=== PATIENT | male | born 1965 | race Caucasian/White ===

== ENCOUNTER 2017-05-10 14:51 | Inpatient (IN) | payer OTHER ==
[~2017-05-10] VITALS: Ht 175.3 cm; Wt 69.2 kg
[~2017-05-10 14:51] MED LIST: ACETAMINOPHEN325 M1 PO; ANTI-DIARRHEAL2 M1 PO; BENTYL20 MG PO; CLONAZEPAM1 MG PO; DICYCLOMINE HCL20 MG PO; FAMOTIDINE20 MG PO; FLEXERIL10 MG PO; FLOMAX0.4 MG PO; FLUCONAZOLE200 M1 PO; GRALISE300 MG PO; HYDROCODONE-AP1 EAC1 PO; IRON18 MG PO; IRON325 M1 PO; KLONOPIN1 MG PO; LOMOTIL TABLET1 EACH PO; METAMUCIL CAPSU1 CAP PO; METRONIDAZOLE500 MG PO; NEURONTIN300 MG PO; OPIUM10 MG/1 ML PO; OXYCODONE HCL5 MG PO; OXYCODONE20 MG PO; PERCOCET 5/31 TABLET PO; PERCOCET 7.51 TABLET PO; PRILOSEC20 MG PO; PROAIR HFA8.5 GM IH; SYMBICORT60 INHALAT IH
[2017-05-10 15:36] LABS: HEMATOCRIT 44.5 % (38.0-50.0); MCH 30.7 PG (29.0-34.0); MCHC 33.9 G/DL (30.0-36.0); MCV 90.4 FL (86-99); MEAN PLAT.VOLUME 10.8 uM^3 (9.0-12.4); PLATELET COUNT 123 K/uL (156-360); RBC DIS.WIDTH-CV 14.2 % (11.8-14.6); RBC DIS.WIDTH-SD 47.8 % (39-53); RED BLOOD COUNT 4.92 M/uL (4.00-5.50)
[2017-05-10 15:37] LABS: CHLORIDE 95 mEq/L (99-109); POTASSIUM 5.4 mEq/L (3.7-5.4); SODIUM 135 mEq/L (136-147); WHITE BLOOD COUNT 1.6 K/uL (4.1-10.2)
[2017-05-10 15:39] LABS: GLUCOSE 77 mg/dL (70-99)
[2017-05-10 15:40] LABS: ANION GAP 24 MEQ/L (2-14)
[2017-05-10 15:41] LABS: TOTAL BILIRUBIN 0.5 mg/dL (0.0-1.0)
[2017-05-10 15:43] LABS: ALKALINE PHOSPHATASE 39 IU/L (3-129); GFR ESTIMATE (CALCULATED) 15 mL/min/
[2017-05-10 15:44] LABS: UREA NITROGEN (BUN) 87 mg/dL (9-23)
[2017-05-10 15:48] LABS: TROP-I INTERPRETATION NEGATIVE; TROPONIN-I < 0.01 ng/mL (0.0-0.30)
[2017-05-10 16:45] LABS: ABS NEUTROPHIL COUNT 1.3; ANISOCYTOSIS 1+; BAND NEUTROPHILS 47.2 % (0-8.0); BASOPHILS 0.9 %; BURR CELLS 2+; EOSINOPHIL ABS CT 0; GIANT PLATELETS 1+; INSTRUMENT ABS NEUTROPHIL CT 1.4 K/uL; LYMPHOCYTES 7.4 % (15.0-45.0); MACROCYTES 1+; MYELOCYTES 6.5 %; PLAT.SUFFICIENCY DECREASED; POIKILOCYTOSIS 2+; POLYCHROMASIA 1+; SEG.NEUTROPHILS 35.2 % (46.0-76.0); SPHEROCYTES 2+
[2017-05-10 17:56] LABS: TOX.VACUOLIZATION 2+; TOXIC GRANULATION 3+
[2017-05-10] MEDS ORDERED: GABAPENTIN300 MG PO (18:51)
[2017-05-10] MEDS ORDERED: TAMSULOSIN HCL0.4 MG PO (18:53)
[2017-05-10] MEDS ORDERED: TIZANIDINE HCL4 MG PO (18:55)
[2017-05-10] MEDS ORDERED: AFRIN,GENASAL D15 ML BOTH NARES (18:57)
[2017-05-10] MEDS ORDERED: PREDNISONE50 MG PO (18:57)
[2017-05-10 19:20] VITALS: BP 122/70
[2017-05-10 20:00] VITALS: BP 110/71
[2017-05-10 21:00] VITALS: BP 142/80
[2017-05-10 21:30] LABS: METH RESISTANT S AUREUS PCR NEGATIVE (NEGATIVE)
[2017-05-10 21:53] LABS: PROBE CHECK PASS; SPECIMEN PROCESSING CONTROL PASS
[2017-05-10 22:00] VITALS: BP 109/68
[2017-05-10 23:00] VITALS: BP 103/71
[2017-05-11] VITALS (22 sets, daily range): BP systolic 83–146; BP diastolic 56–104
[2017-05-11 06:24] LABS: HEMATOCRIT 36.2 % (38.0-50.0); MCH 30.2 PG (29.0-34.0); MCHC 33.1 G/DL (30.0-36.0); RBC DIS.WIDTH-CV 14.3 % (11.8-14.6); RBC DIS.WIDTH-SD 48.3 % (39-53); RED BLOOD COUNT 3.98 M/uL (4.00-5.50)
[2017-05-11 06:28] LABS: ANION GAP 12 MEQ/L (2-14); CHLORIDE 105 MEQ/L (99-109); GLUCOSE 77 mg/dL (70-99); POTASSIUM 4.8 MEQ/L (3.7-5.4); SAMPLE HEMOLYSIS CHECK 0; SAMPLE ICTERIC CHECK 0; SAMPLE LIPEMIA CHECK 0; SODIUM 139 MEQ/L (136-147); UREA NITROGEN (BUN) 62 mg/dL (9-23)
[2017-05-11 06:31] LABS: TROP-I INTERPRETATION NEGATIVE; TROPONIN-I 0.02 ng/mL (0.0-0.30)
[2017-05-11 06:35] LABS: GFR ESTIMATE (CALCULATED) 33 mL/min/
[2017-05-11 06:49] LABS: MEAN PLAT.VOLUME 11.4 uM^3 (9.0-12.4); PLAT.SUFFICIENCY DECREASED
[2017-05-11 06:59] LABS: PLATELET COUNT 80 K/uL (156-360)
[2017-05-11 10:14] LABS: MAGNESIUM 1.8 mg/dl (1.3-2.7)
[2017-05-11 16:48] LABS: BASE EXCESS -4.1 mEq/L (-3 to +3); CARBOXY HGB 2.1 % (0-5); METHEMOGLOBIN 1.5 % (0-1.5); PCO2 49 mm Hg (35-45); PO2 60 mm Hg (80-100)
[2017-05-11 16:49] LABS: COMMENTS - BLOOD GASES C+; DEVICE NC; O2 FLOW 5 L/MIN; SITE RR; TOTAL RESP RATE 32 resp/min; pH 7.28 (7.35-7.45)
[2017-05-11 20:07] LABS: BICARBONATE 23.8 mEq/L (22-26); CARBOXY HGB 1.5 % (0-5); METHEMOGLOBIN 1.4 % (0-1.5)
[2017-05-11 20:08] LABS: COMMENTS - BLOOD GASES C+A+; DEVICE VENTILATOR; FI02 100 %; INSPIRATION TIME 0.8 seconds; MECHANICAL RATE 14 resp/min; MODE A/C VC+; PCO2 61 mm Hg (35-45); PEEP 8 CM/H20; PO2 324 mm Hg (80-100); SITE RR; TIDAL VOLUME 450 ML; TOTAL RESP RATE 19 resp/min
[2017-05-12] VITALS (23 sets, daily range): BP systolic 84–124; BP diastolic 51–71
[2017-05-12 06:45] LABS: HEMATOCRIT 34.9 % (38.0-50.0); MCH 31.5 PG (29.0-34.0); MCHC 33.2 G/DL (30.0-36.0); MCV 94.8 FL (86-99); MEAN PLAT.VOLUME 11.5 uM^3 (9.0-12.4); PLATELET COUNT 89 K/uL (156-360); RBC DIS.WIDTH-SD 52.7 % (39-53); RED BLOOD COUNT 3.68 M/uL (4.00-5.50); WHITE BLOOD COUNT 5.2 K/uL (4.1-10.2)
[2017-05-12 07:10] LABS: ANION GAP 8 MEQ/L (2-14); CHLORIDE 109 MEQ/L (99-109); GLUCOSE 90 mg/dL (70-99); SAMPLE HEMOLYSIS CHECK 0; SAMPLE ICTERIC CHECK 0; SAMPLE LIPEMIA CHECK 0; SODIUM 140 MEQ/L (136-147); UREA NITROGEN (BUN) 54 mg/dL (9-23)
[2017-05-12 07:11] LABS: GFR ESTIMATE (CALCULATED) > 59 mL/min/; MAGNESIUM 2.4 mg/dl (1.3-2.7)
[2017-05-12 13:30] LABS: BASE EXCESS -3.6 mEq/L (-3 to +3); BICARBONATE 23.1 mEq/L (22-26); CARBOXY HGB 1.5 % (0-5); COMMENTS - BLOOD GASES A+C+; DEVICE 840; FI02 40 %; MECHANICAL RATE 18 resp/min; METHEMOGLOBIN 1.3 % (0-1.5); MODE AC/VC+; PCO2 48 mm Hg (35-45); PO2 81 mm Hg (80-100); SITE LR; TOTAL RESP RATE 18 resp/min
[2017-05-12 13:31] LABS: INSPIRATION TIME 1.05 seconds; PEEP 8 CM/H20; TIDAL VOLUME 550 ML; pH 7.29 (7.35-7.45)
[2017-05-12 20:32] LABS: BASE EXCESS -4.3 mEq/L (-3 to +3); BICARBONATE 22.9 mEq/L (22-26); CARBOXY HGB 1.2 % (0-5); METHEMOGLOBIN 1.8 % (0-1.5); PCO2 51 mm Hg (35-45); PO2 72 mm Hg (80-100)
[2017-05-12 20:33] LABS: COMMENTS - BLOOD GASES C+A+; DEVICE VENT; FI02 40 %; MECHANICAL RATE 18 resp/min; MODE AC; PEEP 8 CM/H20; SITE LR; TIDAL VOLUME 550 ML; TOTAL RESP RATE 18 resp/min; pH 7.26 (7.35-7.45)
[2017-05-13] VITALS (24 sets, daily range): BP systolic 90–123; BP diastolic 54–82
[2017-05-13 02:05] LABS: BASE EXCESS -4.8 mEq/L (-3 to +3); CARBOXY HGB 1.3 % (0-5); COMMENTS - BLOOD GASES C+A+; DEVICE VENT; FI02 40 %; MECHANICAL RATE 22 resp/min; METHEMOGLOBIN 1.4 % (0-1.5); MODE AC; PCO2 48 mm Hg (35-45); PO2 83 mm Hg (80-100); SITE LR; TOTAL RESP RATE 22 resp/min
[2017-05-13 02:06] LABS: TIDAL VOLUME 550 ML; pH 7.27 (7.35-7.45)
[2017-05-13 02:11] LABS: PEEP 8 CM/H20
[2017-05-13 05:08] LABS: BASE EXCESS -4.7 mEq/L (-3 to +3); BICARBONATE 21.6 mEq/L (22-26); CARBOXY HGB 1.6 % (0-5); COMMENTS - BLOOD GASES C+A+; DEVICE VENT; FI02 40 %; MECHANICAL RATE 26 resp/min; METHEMOGLOBIN 1.5 % (0-1.5); MODE AC; PCO2 44 mm Hg (35-45); PEEP 8 CM/H20; PO2 59 mm Hg (80-100); SITE LR; TIDAL VOLUME 550 ML; TOTAL RESP RATE 26 resp/min
[2017-05-13 05:33] LABS: POTASSIUM 4.9 mEq/L (3.7-5.4); SODIUM 143 mEq/L (136-147)
[2017-05-13 05:34] LABS: CHLORIDE 117 mEq/L (99-109)
[2017-05-13 05:35] LABS: GLUCOSE 108 mg/dL (70-99)
[2017-05-13 05:36] LABS: HEMATOCRIT 30.3 % (38.0-50.0); MCH 30.1 PG (29.0-34.0); MCV 94.1 FL (86-99); MEAN PLAT.VOLUME 11.4 uM^3 (9.0-12.4); PLATELET COUNT 73 K/uL (156-360); RBC DIS.WIDTH-CV 15.2 % (11.8-14.6); RED BLOOD COUNT 3.22 M/uL (4.00-5.50); WHITE BLOOD COUNT 4.1 K/uL (4.1-10.2)
[2017-05-13 05:36] LABS: ANION GAP 5 MEQ/L (2-14)
[2017-05-13 05:39] LABS: GFR ESTIMATE (CALCULATED) > 59 mL/min/; UREA NITROGEN (BUN) 64 mg/dL (9-23)
[2017-05-13 07:07] LABS: EOSINOPHIL (%) 0 % (0-5); IMMATURE GRANULOCYTE (%) 1.5 % (0.0-0.7); IMMATURE GRANULOCYTE COUNT 0.1 K/uL; INSTRUMENT ABS NEUTROPHIL CT 3.5 K/uL; LYMPHOCYTE COUNT 0.2 K/uL (1.0-2.8); MONOCYTE (%) 7.8 % (3-12); MONOCYTE COUNT 0.3 K/uL (0-0.8); NEUTROPHIL (%) 86.5 % (45-76); NEUTROPHIL COUNT 3.5 K/uL (1.8-6.4)
[2017-05-13 23:58] LABS: BASE EXCESS -4.8 mEq/L (-3 to +3); BICARBONATE 21.1 mEq/L (22-26); CARBOXY HGB 1.8 % (0-5); METHEMOGLOBIN 1.5 % (0-1.5); PCO2 41 mm Hg (35-45); PO2 50 mm Hg (80-100); pH 7.32 (7.35-7.45)
[2017-05-14] VITALS (28 sets, daily range): BP systolic 94–148; BP diastolic 57–92
[2017-05-14] LABS: COMMENTS - BLOOD GASES C+A+; DEVICE VENT; FI02 30 %; MECHANICAL RATE 26 resp/min; MODE AC; PEEP 8 CM/H20; SITE LR; TIDAL VOLUME 550 ML; TOTAL RESP RATE 26 resp/min
[2017-05-14 04:16] LABS: HEMATOCRIT 30.4 % (38.0-50.0); MCH 30.3 PG (29.0-34.0); MCHC 31.6 G/DL (30.0-36.0); MCV 95.9 FL (86-99); PLATELET COUNT 74 K/uL (156-360); RBC DIS.WIDTH-CV 15.5 % (11.8-14.6); RBC DIS.WIDTH-SD 54.8 % (39-53); RED BLOOD COUNT 3.17 M/uL (4.00-5.50); WHITE BLOOD COUNT 6.1 K/uL (4.1-10.2)
[2017-05-14 04:26] LABS: CHLORIDE 119 mEq/L (99-109); POTASSIUM 5.2 mEq/L (3.7-5.4); SODIUM 149 mEq/L (136-147)
[2017-05-14 04:27] LABS: GLUCOSE 111 mg/dL (70-99)
[2017-05-14 04:29] LABS: ANION GAP 8 MEQ/L (2-14)
[2017-05-14 04:31] LABS: GFR ESTIMATE (CALCULATED) > 59 mL/min/
[2017-05-14 04:32] LABS: UREA NITROGEN (BUN) 62 mg/dL (9-23)
[2017-05-14 05:45] LABS: BASE EXCESS -3.9 mEq/L (-3 to +3); BICARBONATE 21.6 mEq/L (22-26); CARBOXY HGB 1.3 % (0-5); METHEMOGLOBIN 1.4 % (0-1.5); PCO2 40 mm Hg (35-45); pH 7.34 (7.35-7.45)
[2017-05-14 05:46] LABS: COMMENTS - BLOOD GASES C+A+; DEVICE VENT; FI02 40 %; MECHANICAL RATE 26 resp/min; MODE AC; PEEP 5 CM/H20; PO2 101 mm Hg (80-100); SITE RR; TIDAL VOLUME 550 ML; TOTAL RESP RATE 26 resp/min
[2017-05-14 07:15] LABS: MAGNESIUM 2.5 mg/dl (1.3-2.7)
[2017-05-14 13:28] LABS: ANION GAP 9 MEQ/L (2-14); CHLORIDE 119 MEQ/L (99-109); GFR ESTIMATE (CALCULATED) > 59 mL/min/; GLUCOSE 109 mg/dL (70-99); POTASSIUM 5.2 MEQ/L (3.7-5.4); SAMPLE HEMOLYSIS CHECK 0; SAMPLE ICTERIC CHECK 0; SAMPLE LIPEMIA CHECK 0; SODIUM 149 MEQ/L (136-147); UREA NITROGEN (BUN) 56 mg/dL (9-23)
[2017-05-15] VITALS (24 sets, daily range): BP systolic 98–151; BP diastolic 53–85
[2017-05-15 05:03] LABS: HEMATOCRIT 30.8 % (38.0-50.0); MCH 30.1 PG (29.0-34.0); MCHC 30.8 G/DL (30.0-36.0); MCV 97.5 FL (86-99); MEAN PLAT.VOLUME 10.9 uM^3 (9.0-12.4); NRBC (%) 0.3 /100 WBC (0-0); PLATELET COUNT 80 K/uL (156-360); RBC DIS.WIDTH-CV 15.5 % (11.8-14.6); RBC DIS.WIDTH-SD 55.8 % (39-53); RED BLOOD COUNT 3.16 M/uL (4.00-5.50); WHITE BLOOD COUNT 6.1 K/uL (4.1-10.2)
[2017-05-15 05:11] LABS: CHLORIDE 118 mEq/L (99-109); POTASSIUM 5.6 mEq/L (3.7-5.4); SODIUM 147 mEq/L (136-147)
[2017-05-15 05:13] LABS: GLUCOSE 128 mg/dL (70-99)
[2017-05-15 05:14] LABS: ANION GAP 8 MEQ/L (2-14)
[2017-05-15 05:17] LABS: GFR ESTIMATE (CALCULATED) > 59 mL/min/; UREA NITROGEN (BUN) 52 mg/dL (9-23)
[2017-05-16] VITALS (24 sets, daily range): BP systolic 99–133; BP diastolic 59–79
[2017-05-16 04:41] LABS: HEMATOCRIT 31.2 % (38.0-50.0); MCH 30.4 PG (29.0-34.0); MCHC 30.8 G/DL (30.0-36.0); MCV 98.7 FL (86-99); MEAN PLAT.VOLUME 11.3 uM^3 (9.0-12.4); PLATELET COUNT 96 K/uL (156-360); RBC DIS.WIDTH-CV 14.6 % (11.8-14.6); RED BLOOD COUNT 3.16 M/uL (4.00-5.50); WHITE BLOOD COUNT 7.1 K/uL (4.1-10.2)
[2017-05-16 04:58] LABS: CHLORIDE 113 mEq/L (99-109); SODIUM 147 mEq/L (136-147)
[2017-05-16 04:59] LABS: POTASSIUM 6.1 mEq/L (3.7-5.4)
[2017-05-16 05:00] LABS: GLUCOSE 129 mg/dL (70-99)
[2017-05-16 05:02] LABS: ANION GAP 10 MEQ/L (2-14); TOTAL BILIRUBIN 0.4 mg/dL (0.0-1.0)
[2017-05-16 05:04] LABS: ALKALINE PHOSPHATASE 41 IU/L (3-129); GFR ESTIMATE (CALCULATED) > 59 mL/min/
[2017-05-16 05:05] LABS: UREA NITROGEN (BUN) 48 mg/dL (9-23)
[2017-05-17] VITALS (24 sets, daily range): BP systolic 88–138; BP diastolic 51–88
[2017-05-17 04:49] LABS: HEMATOCRIT 33.6 % (38.0-50.0); MCH 30.4 PG (29.0-34.0); MCHC 31.5 G/DL (30.0-36.0); MCV 96.3 FL (86-99); MEAN PLAT.VOLUME 10.7 uM^3 (9.0-12.4); PLATELET COUNT 132 K/uL (156-360); RBC DIS.WIDTH-CV 13.9 % (11.8-14.6); RBC DIS.WIDTH-SD 49.3 % (39-53); RED BLOOD COUNT 3.49 M/uL (4.00-5.50)
[2017-05-17 04:58] LABS: CHLORIDE 104 mEq/L (99-109); POTASSIUM 5.3 mEq/L (3.7-5.4); SODIUM 144 mEq/L (136-147)
[2017-05-17 05:00] LABS: GLUCOSE 134 mg/dL (70-99)
[2017-05-17 05:02] LABS: ANION GAP 12 MEQ/L (2-14)
[2017-05-17 05:04] LABS: ALKALINE PHOSPHATASE 54 IU/L (3-129); GFR ESTIMATE (CALCULATED) > 59 mL/min/
[2017-05-17 05:05] LABS: UREA NITROGEN (BUN) 46 mg/dL (9-23)
[2017-05-17 05:08] LABS: TOTAL BILIRUBIN 0.5 mg/dL (0.0-1.0)
[2017-05-17 14:54] LABS: CREATINE KINASE 22 IU/L (1-294); TRIGLYCERIDES 107 MG/DL (Normal: <150)
[2017-05-17 15:45] LABS: ADD MIUA? NO; BILIRUBIN NEGATIVE; BLOOD NEGATIVE; COLOR YELLOW ((YELLOW)); GLUCOSE (STRIP) NEGATIVE; KETONES NEGATIVE; LEUKOCYTES NEGATIVE; NITRITE NEGATIVE; PROTEIN (STRIP) NEGATIVE; SPECIFIC GRAVITY 1.019 (1.000-1.030); UROBILINOGEN 0.2 MG/DL (0.2-1.0)
[2017-05-18] VITALS (24 sets, daily range): BP systolic 83–143; BP diastolic 47–90
[2017-05-18 06:12] LABS: HEMATOCRIT 35.7 % (38.0-50.0); MCH 29.9 PG (29.0-34.0); MCHC 31.4 G/DL (30.0-36.0); MCV 95.2 FL (86-99); MEAN PLAT.VOLUME 11.2 uM^3 (9.0-12.4); PLATELET COUNT 213 K/uL (156-360); RBC DIS.WIDTH-CV 13.4 % (11.8-14.6); RBC DIS.WIDTH-SD 47.1 % (39-53); RED BLOOD COUNT 3.75 M/uL (4.00-5.50); WHITE BLOOD COUNT 14.5 K/uL (4.1-10.2)
[2017-05-18 06:17] LABS: ANION GAP 7 MEQ/L (2-14); GFR ESTIMATE (CALCULATED) > 59 mL/min/; GLUCOSE 108 mg/dL (70-99); SAMPLE HEMOLYSIS CHECK 0; SAMPLE ICTERIC CHECK 0; SAMPLE LIPEMIA CHECK 0; SODIUM 137 MEQ/L (136-147); UREA NITROGEN (BUN) 40 mg/dL (9-23)
[2017-05-18 06:19] LABS: CHLORIDE 100 MEQ/L (99-109); MAGNESIUM 1.2 mg/dl (1.3-2.7); POTASSIUM 3.9 MEQ/L (3.7-5.4)
[2017-05-19] VITALS (24 sets, daily range): BP systolic 96–157; BP diastolic 53–107
[2017-05-19 05:54] LABS: MCH 30.8 PG (29.0-34.0); MCHC 32.2 G/DL (30.0-36.0); MCV 95.8 FL (86-99); MEAN PLAT.VOLUME 11.2 uM^3 (9.0-12.4); PLATELET COUNT 184 K/uL (156-360); RBC DIS.WIDTH-CV 13.1 % (11.8-14.6); RBC DIS.WIDTH-SD 45.7 % (39-53); RED BLOOD COUNT 3.34 M/uL (4.00-5.50); WHITE BLOOD COUNT 9.2 K/uL (4.1-10.2)
[2017-05-19 06:42] LABS: ANION GAP 5 MEQ/L (2-14); CHLORIDE 100 MEQ/L (99-109); GFR ESTIMATE (CALCULATED) > 59 mL/min/; GLUCOSE 137 mg/dL (70-99); SAMPLE HEMOLYSIS CHECK 0; SAMPLE ICTERIC CHECK 0; SAMPLE LIPEMIA CHECK 0; SODIUM 138 MEQ/L (136-147); UREA NITROGEN (BUN) 36 mg/dL (9-23)
[2017-05-19 06:50] LABS: MAGNESIUM 1.7 mg/dl (1.3-2.7); POTASSIUM 4.9 MEQ/L (3.7-5.4)
[2017-05-20] VITALS (17 sets, daily range): BP systolic 91–138; BP diastolic 57–84
[2017-05-20 05:50] LABS: HEMATOCRIT 33.3 % (38.0-50.0); MCH 31.1 PG (29.0-34.0); MCHC 32.4 G/DL (30.0-36.0); RBC DIS.WIDTH-CV 13.2 % (11.8-14.6); RBC DIS.WIDTH-SD 46.3 % (39-53); RED BLOOD COUNT 3.47 M/uL (4.00-5.50); WHITE BLOOD COUNT 12.4 K/uL (4.1-10.2)
[2017-05-20 05:52] LABS: PLATELET COUNT 248 K/uL (156-360)
[2017-05-20 05:53] LABS: ANION GAP 6 MEQ/L (2-14); CHLORIDE 100 MEQ/L (99-109); GFR ESTIMATE (CALCULATED) > 59 mL/min/; GLUCOSE 117 mg/dL (70-99); MAGNESIUM 1.6 mg/dl (1.3-2.7); POTASSIUM 4.3 MEQ/L (3.7-5.4); SAMPLE HEMOLYSIS CHECK 0; SAMPLE ICTERIC CHECK 0; SAMPLE LIPEMIA CHECK 0; SODIUM 138 MEQ/L (136-147); UREA NITROGEN (BUN) 31 mg/dL (9-23)
[2017-05-21] VITALS (13 sets, daily range): BP systolic 94–149; BP diastolic 51–90
[2017-05-21 05:38] LABS: HEMATOCRIT 32.8 % (38.0-50.0); MCH 29.3 PG (29.0-34.0); MCHC 30.5 G/DL (30.0-36.0); MCV 96.2 FL (86-99); MEAN PLAT.VOLUME 10.4 uM^3 (9.0-12.4); PLATELET COUNT 297 K/uL (156-360); RBC DIS.WIDTH-CV 13.4 % (11.8-14.6); RBC DIS.WIDTH-SD 47.3 % (39-53); RED BLOOD COUNT 3.41 M/uL (4.00-5.50); WHITE BLOOD COUNT 10.6 K/uL (4.1-10.2)
[2017-05-21 06:04] LABS: ANION GAP 5 MEQ/L (2-14); CHLORIDE 101 MEQ/L (99-109); GFR ESTIMATE (CALCULATED) > 59 mL/min/; GLUCOSE 129 mg/dL (70-99); MAGNESIUM 1.6 mg/dl (1.3-2.7); POTASSIUM 4.5 MEQ/L (3.7-5.4); SAMPLE HEMOLYSIS CHECK 0; SAMPLE ICTERIC CHECK 0; SAMPLE LIPEMIA CHECK 0; SODIUM 139 MEQ/L (136-147); UREA NITROGEN (BUN) 33 mg/dL (9-23)
[2017-05-22] VITALS (14 sets, daily range): BP systolic 108–148; BP diastolic 68–85
[2017-05-22 04:49] LABS: HEMATOCRIT 33.1 % (38.0-50.0); MCV 93.8 FL (86-99); MEAN PLAT.VOLUME 9.9 uM^3 (9.0-12.4); PLATELET COUNT 337 K/uL (156-360); RBC DIS.WIDTH-SD 44.2 % (39-53); RED BLOOD COUNT 3.53 M/uL (4.00-5.50); WHITE BLOOD COUNT 8.7 K/uL (4.1-10.2)
[2017-05-22 04:55] LABS: CHLORIDE 106 mEq/L (99-109); POTASSIUM 3.7 mEq/L (3.7-5.4); SODIUM 142 mEq/L (136-147)
[2017-05-22 04:56] LABS: MAGNESIUM 1.3 mg/dL (1.3-2.7)
[2017-05-22 04:59] LABS: ANION GAP 7 MEQ/L (2-14)
[2017-05-22 05:01] LABS: GFR ESTIMATE (CALCULATED) > 59 mL/min/
[2017-05-22 05:02] LABS: UREA NITROGEN (BUN) 25 mg/dL (9-23)
[2017-05-22 05:06] LABS: GLUCOSE 92 mg/dL (70-99)
[2017-05-22 07:59] LABS: BASE EXCESS 6.7 mEq/L (-3 to +3); BICARBONATE 30.4 mEq/L (22-26); CARBOXY HGB 2.1 % (0-5); COMMENTS - BLOOD GASES A+C+; METHEMOGLOBIN 1.7 % (0-1.5); PCO2 39 mm Hg (35-45); PO2 60 mm Hg (80-100); SITE RR
[2017-05-22 08:00] LABS: DEVICE NC; O2 FLOW 2 L/MIN; TOTAL RESP RATE 22 resp/min
[2017-05-23 03:45] VITALS: BP 135/75
[2017-05-23 07:00] LABS: HEMATOCRIT 37.6 % (38.0-50.0); MCHC 31.4 G/DL (30.0-36.0); MCV 95.7 FL (86-99); MEAN PLAT.VOLUME 9.7 uM^3 (9.0-12.4); PLATELET COUNT 393 K/uL (156-360); RBC DIS.WIDTH-SD 45.3 % (39-53); RED BLOOD COUNT 3.93 M/uL (4.00-5.50); WHITE BLOOD COUNT 8.8 K/uL (4.1-10.2)
[2017-05-23 07:32] LABS: ANION GAP 8 MEQ/L (2-14); CHLORIDE 107 MEQ/L (99-109); GFR ESTIMATE (CALCULATED) > 59 mL/min/; GLUCOSE 89 mg/dL (70-99); POTASSIUM 4.1 MEQ/L (3.7-5.4); SAMPLE HEMOLYSIS CHECK 0; SAMPLE ICTERIC CHECK 0; SAMPLE LIPEMIA CHECK 0; SODIUM 142 MEQ/L (136-147); UREA NITROGEN (BUN) 32 mg/dL (9-23)
[2017-05-23 08:11] VITALS: BP 114/63
[2017-05-23 08:40] LABS: INTER. NORMALIZED RATIO 1.3
[2017-05-23 09:30] LABS: TYPE OF FLUID THORACENTESIS
[2017-05-23 09:53] LABS: GLUCOSE 86 mg/dL (70-99); LACTATE DEHYDROGENASE 240 IU/L (20-246)
[2017-05-23 10:01] LABS: BODY FLUID RBC'S 19000 /MM^3 (0-100); BODY FLUID WBC'S 4981 /MM^3 (0-500)
[2017-05-23 10:22] LABS: BODY FLUID LDH 4279 IU/L; BODY FLUID PROTEIN 3.2 G/DL
[2017-05-23 10:36] LABS: BODY FLUID EOSINOPHILS 0 % (0-25); MONO RAW COUNT 2; MONONUCLEAR WBC'S 2 %; POLY RAW COUNT 98; POLYNUCLEAR WBC'S 98 % (0-25)
[2017-05-23 11:37] VITALS: BP 134/68
[2017-05-23 15:50] VITALS: BP 105/65
[2017-05-23 23:51] VITALS: BP 110/77
[2017-05-24 04:15] VITALS: BP 120/74
[2017-05-24 08:08] VITALS: BP 123/78
[2017-05-24 11:28] VITALS: BP 114/69
[2017-05-24 15:12] VITALS: BP 108/69
[2017-05-24 20:06] VITALS: BP 119/81
[2017-05-25] VITALS (7 sets, daily range): BP systolic 100–134; BP diastolic 56–78
[2017-05-25 07:07] LABS: HEMATOCRIT 34.8 % (38.0-50.0); MCH 31.4 PG (29.0-34.0); MCHC 33.3 G/DL (30.0-36.0); MCV 94.1 FL (86-99); MEAN PLAT.VOLUME 9.4 uM^3 (9.0-12.4); PLATELET COUNT 357 K/uL (156-360); RBC DIS.WIDTH-CV 13.4 % (11.8-14.6); RBC DIS.WIDTH-SD 45.2 % (39-53); WHITE BLOOD COUNT 7.1 K/uL (4.1-10.2)
[2017-05-25 07:30] LABS: ANION GAP 6 MEQ/L (2-14); CHLORIDE 110 MEQ/L (99-109); GFR ESTIMATE (CALCULATED) > 59 mL/min/; GLUCOSE 80 mg/dL (70-99); POTASSIUM 3.6 MEQ/L (3.7-5.4); SAMPLE HEMOLYSIS CHECK 0; SAMPLE ICTERIC CHECK 0; SAMPLE LIPEMIA CHECK 0; SODIUM 143 MEQ/L (136-147); UREA NITROGEN (BUN) 32 mg/dL (9-23)
[2017-05-26 03:58] VITALS: BP 112/68
[2017-05-26 07:10] LABS: ANION GAP 7 MEQ/L (2-14); CHLORIDE 110 MEQ/L (99-109); GFR ESTIMATE (CALCULATED) > 59 mL/min/; GLUCOSE 89 mg/dL (70-99); POTASSIUM 3.6 MEQ/L (3.7-5.4); SAMPLE HEMOLYSIS CHECK 0; SAMPLE ICTERIC CHECK 0; SAMPLE LIPEMIA CHECK 0; SODIUM 141 MEQ/L (136-147); UREA NITROGEN (BUN) 38 mg/dL (9-23)
[2017-05-26 07:14] VITALS: BP 109/62
[2017-05-26 12:56] VITALS: BP 111/71
[2017-05-26 16:08] VITALS: BP 113/69
[2017-05-26 19:33] LABS: BODY FLUID PH 7.7 (())
[2017-05-26 19:42] VITALS: BP 116/67
[2017-05-26 23:43] VITALS: BP 95/51
[2017-05-27 04:02] VITALS: BP 102/63
[2017-05-27 06:34] LABS: HEMATOCRIT 29.8 % (38.0-50.0); MCH 30.3 PG (29.0-34.0); MCHC 32.2 G/DL (30.0-36.0); PLATELET COUNT 323 K/uL (156-360); RBC DIS.WIDTH-CV 13.8 % (11.8-14.6); RBC DIS.WIDTH-SD 46.2 % (39-53); RED BLOOD COUNT 3.17 M/uL (4.00-5.50); WHITE BLOOD COUNT 7.8 K/uL (4.1-10.2)
[2017-05-27 06:43] LABS: ANION GAP 7 MEQ/L (2-14); CHLORIDE 109 MEQ/L (99-109); GFR ESTIMATE (CALCULATED) > 59 mL/min/; GLUCOSE 89 mg/dL (70-99); POTASSIUM 3.7 MEQ/L (3.7-5.4); SAMPLE HEMOLYSIS CHECK 0; SAMPLE ICTERIC CHECK 0; SAMPLE LIPEMIA CHECK 0; SODIUM 142 MEQ/L (136-147); UREA NITROGEN (BUN) 34 mg/dL (9-23)
[2017-05-27 08:22] VITALS: BP 98/59
[2017-05-27 11:37] VITALS: BP 109/64
[2017-05-27 15:29] VITALS: BP 103/62
[2017-05-27 22:15] VITALS: BP 111/55
[2017-05-28 00:10] VITALS: BP 94/51
[2017-05-28 04:14] VITALS: BP 96/53
[2017-05-28 07:24] VITALS: BP 105/56
[2017-05-28 09:48] LABS: EOSINOPHIL (%) 0.1 % (0-5); HEMATOCRIT 28.1 % (38.0-50.0); IMMATURE GRANULOCYTE (%) 0.6 % (0.0-0.7); IMMATURE GRANULOCYTE COUNT 0.1 K/uL; INSTRUMENT ABS NEUTROPHIL CT 10.3 K/uL; LYMPHOCYTE COUNT 1.3 K/uL (1.0-2.8); MCH 31.5 PG (29.0-34.0); MCHC 33.1 G/DL (30.0-36.0); MCV 95.3 FL (86-99); MEAN PLAT.VOLUME 9.8 uM^3 (9.0-12.4); MONOCYTE (%) 7.1 % (3-12); MONOCYTE COUNT 0.9 K/uL (0-0.8); NEUTROPHIL COUNT 10.3 K/uL (1.8-6.4); PLATELET COUNT 358 K/uL (156-360); RBC DIS.WIDTH-CV 14.6 % (11.8-14.6); RBC DIS.WIDTH-SD 48.8 % (39-53); RED BLOOD COUNT 2.95 M/uL (4.00-5.50); WHITE BLOOD COUNT 12.6 K/uL (4.1-10.2)
[2017-05-28 10:10] LABS: ANION GAP 6 MEQ/L (2-14); CHLORIDE 105 MEQ/L (99-109); GFR ESTIMATE (CALCULATED) > 59 mL/min/; GLUCOSE 90 mg/dL (70-99); POTASSIUM 4.3 MEQ/L (3.7-5.4); SAMPLE HEMOLYSIS CHECK 0; SAMPLE ICTERIC CHECK 0; SAMPLE LIPEMIA CHECK 0; SODIUM 137 MEQ/L (136-147); UREA NITROGEN (BUN) 31 mg/dL (9-23)
[2017-05-28 10:23] LABS: VANCOMYCIN, TROUGH 8.6 MCG/ML (10-20)
[2017-05-28 12:33] VITALS: BP 104/60
[2017-05-28 17:47] VITALS: BP 97/61
[2017-05-28 19:15] VITALS: BP 113/63
[2017-05-29] VITALS (11 sets, daily range): BP systolic 97–125; BP diastolic 52–64
[2017-05-29 06:06] LABS: EOSINOPHIL (%) 0.3 % (0-5); HEMATOCRIT 21.3 % (38.0-50.0); IMMATURE GRANULOCYTE (%) 0.5 % (0.0-0.7); INSTRUMENT ABS NEUTROPHIL CT 4.6 K/uL; MCH 30.5 PG (29.0-34.0); MCHC 32.4 G/DL (30.0-36.0); MCV 94.2 FL (86-99); MONOCYTE (%) 9.9 % (3-12); MONOCYTE COUNT 0.6 K/uL (0-0.8); NEUTROPHIL COUNT 4.6 K/uL (1.8-6.4); RBC DIS.WIDTH-CV 14.8 % (11.8-14.6); RBC DIS.WIDTH-SD 49.1 % (39-53); WHITE BLOOD COUNT 6.3 K/uL (4.1-10.2)
[2017-05-29 06:10] LABS: RED BLOOD COUNT 2.26 M/uL (4.00-5.50)
[2017-05-29 06:24] LABS: ANION GAP 5 MEQ/L (2-14); CHLORIDE 106 MEQ/L (99-109); GFR ESTIMATE (CALCULATED) > 59 mL/min/; GLUCOSE 79 mg/dL (70-99); POTASSIUM 3.4 MEQ/L (3.7-5.4); SAMPLE HEMOLYSIS CHECK 0; SAMPLE ICTERIC CHECK 0; SAMPLE LIPEMIA CHECK 0; SODIUM 137 MEQ/L (136-147); UREA NITROGEN (BUN) 20 mg/dL (9-23)
[2017-05-29 06:40] LABS: ABS NEUTROPHIL COUNT 5.1; EOSINOPHIL ABS CT 0; LYMPHOCYTES 10.6 % (15.0-45.0); MEAN PLAT.VOLUME 9.6 uM^3 (9.0-12.4); PLAT.SUFFICIENCY ADEQUATE; PLATELET COUNT 219 K/uL (156-360); SEG.NEUTROPHILS 81.4 % (46.0-76.0)
[2017-05-29 08:43] LABS: HEMATOCRIT 24.2 % (38.0-50.0); MCH 30.4 PG (29.0-34.0); MCHC 32.2 G/DL (30.0-36.0); MCV 94.2 FL (86-99); MEAN PLAT.VOLUME 9.4 uM^3 (9.0-12.4); PLATELET COUNT 238 K/uL (156-360); RBC DIS.WIDTH-CV 14.7 % (11.8-14.6); RED BLOOD COUNT 2.57 M/uL (4.00-5.50); WHITE BLOOD COUNT 8.4 K/uL (4.1-10.2)
[2017-05-29 17:39] LABS: HEMATOCRIT 24.4 % (38.0-50.0); MCV 93.8 FL (86-99)
[2017-05-29 17:57] LABS: INTERNAL CONTROL VALID? YES
[2017-05-29 21:43] LABS: HEMATOCRIT 24.9 % (38.0-50.0); MCV 92.9 FL (86-99)
[2017-05-30] VITALS (10 sets, daily range): BP systolic 90–110; BP diastolic 55–64
[2017-05-30 05:28] LABS: HEMATOCRIT 24.4 % (38.0-50.0); MCV 93.8 FL (86-99)
[2017-05-30 13:45] LABS: HEMATOCRIT 30.9 % (38.0-50.0); MCV 95.1 FL (86-99)
[2017-05-30 13:50] LABS: INTER. NORMALIZED RATIO 1.1; PROTHROMBIN TIME 12.6 SEC (10.2-12.9)
[2017-05-30 13:52] LABS: PTT 27.4 SEC (25-37)
[2017-05-30 14:10] LABS: IRON 32 MCG/DL (35-150)
[2017-05-30 14:24] LABS: FERRITIN 252 NG/ML (22-322)
[2017-05-30 22:45] LABS: HEMATOCRIT 26.4 % (38.0-50.0); MCV 91.7 FL (86-99)
[2017-05-31] VITALS (9 sets, daily range): BP systolic 90–106; BP diastolic 50–62
[2017-05-31 05:34] LABS: CHLORIDE 108 mEq/L (99-109); POTASSIUM 3.9 mEq/L (3.7-5.4); SODIUM 139 mEq/L (136-147)
[2017-05-31 05:35] LABS: GLUCOSE 78 mg/dL (70-99)
[2017-05-31 05:37] LABS: ANION GAP 6 MEQ/L (2-14)
[2017-05-31 05:39] LABS: GFR ESTIMATE (CALCULATED) > 59 mL/min/
[2017-05-31 05:40] LABS: UREA NITROGEN (BUN) 14 mg/dL (9-23)
[2017-05-31 05:52] LABS: EOSINOPHIL (%) 1.2 % (0-5); EOSINOPHIL COUNT 0.1 K/uL (0-0.3); HEMATOCRIT 26.3 % (38.0-50.0); IMMATURE GRANULOCYTE (%) 1.2 % (0.0-0.7); IMMATURE GRANULOCYTE COUNT 0.1 K/uL; INSTRUMENT ABS NEUTROPHIL CT 3.2 K/uL; LYMPHOCYTE COUNT 1.2 K/uL (1.0-2.8); MCH 30.5 PG (29.0-34.0); MCHC 32.7 G/DL (30.0-36.0); MCV 93.3 FL (86-99); MONOCYTE (%) 10.1 % (3-12); MONOCYTE COUNT 0.5 K/uL (0-0.8); NEUTROPHIL (%) 64.1 % (45-76); NEUTROPHIL COUNT 3.2 K/uL (1.8-6.4); RBC DIS.WIDTH-CV 15.7 % (11.8-14.6); RBC DIS.WIDTH-SD 51.6 % (39-53); RED BLOOD COUNT 2.82 M/uL (4.00-5.50)
[2017-05-31 07:08] LABS: MEAN PLAT.VOLUME 9.8 uM^3 (9.0-12.4); PLAT.SUFFICIENCY ADEQUATE
[2017-05-31 07:13] LABS: PLATELET COUNT 163 K/uL (156-360)
[2017-05-31 09:07] LABS: IMM.RETIC FRACTION 16.2 % (3-19); RETIC HGB EQUIVALENT 32.3 (28-36); RETICULOCYTE COUNT 5.1 % (0.5-1.8)
[2017-05-31 09:29] LABS: LACTATE DEHYDROGENASE 259 IU/L (20-246)
[2017-05-31 12:44] LABS: SAMPLE HEMOLYSIS CHECK 0; SAMPLE ICTERIC CHECK 0; SAMPLE LIPEMIA CHECK 0
[2017-05-31 19:15] LABS: HEMATOCRIT 31.8 % (38.0-50.0); MCH 31.3 PG (29.0-34.0); MCHC 33.6 G/DL (30.0-36.0); MEAN PLAT.VOLUME 9.9 uM^3 (9.0-12.4); PLATELET COUNT 207 K/uL (156-360); RBC DIS.WIDTH-CV 15.9 % (11.8-14.6); RBC DIS.WIDTH-SD 52.2 % (39-53); WHITE BLOOD COUNT 6.7 K/uL (4.1-10.2)
[2017-05-31 19:16] LABS: RED BLOOD COUNT 3.42 M/uL (4.00-5.50)
[2017-06-01 04:00] VITALS: BP 110/62
[2017-06-01 05:28] LABS: HEMATOCRIT 30.3 % (38.0-50.0); MCH 29.9 PG (29.0-34.0); MCV 93.5 FL (86-99); MEAN PLAT.VOLUME 9.9 uM^3 (9.0-12.4); PLATELET COUNT 189 K/uL (156-360); RBC DIS.WIDTH-CV 16.1 % (11.8-14.6); RBC DIS.WIDTH-SD 53.5 % (39-53); RED BLOOD COUNT 3.24 M/uL (4.00-5.50); WHITE BLOOD COUNT 6.2 K/uL (4.1-10.2)
[2017-06-01 08:45] VITALS: BP 106/65
[2017-06-01 12:53] VITALS: BP 97/56
[2017-06-01 17:53] LABS: HEMATOCRIT 31.7 % (38.0-50.0); MCH 29.9 PG (29.0-34.0); MCHC 31.9 G/DL (30.0-36.0); MCV 93.8 FL (86-99); PLATELET COUNT 196 K/uL (156-360); RBC DIS.WIDTH-CV 15.9 % (11.8-14.6); RBC DIS.WIDTH-SD 53.3 % (39-53); RED BLOOD COUNT 3.38 M/uL (4.00-5.50); WHITE BLOOD COUNT 7.1 K/uL (4.1-10.2)
[2017-06-01 20:06] VITALS: BP 99/56
[2017-06-01 22:52] LABS: INTERNAL CONTROL VALID? YES
[2017-06-01 23:05] VITALS: BP 110/56
[2017-06-02 04:28] VITALS: BP 104/58
[2017-06-02 05:19] LABS: EOSINOPHIL (%) 1.9 % (0-5); EOSINOPHIL COUNT 0.1 K/uL (0-0.3); HEMATOCRIT 29.1 % (38.0-50.0); IMMATURE GRANULOCYTE (%) 0.7 % (0.0-0.7); INSTRUMENT ABS NEUTROPHIL CT 3.8 K/uL; LYMPHOCYTE COUNT 1.2 K/uL (1.0-2.8); MCH 31.3 PG (29.0-34.0); MCV 94.8 FL (86-99); MEAN PLAT.VOLUME 9.9 uM^3 (9.0-12.4); MONOCYTE (%) 9.2 % (3-12); MONOCYTE COUNT 0.5 K/uL (0-0.8); NEUTROPHIL (%) 67.4 % (45-76); NEUTROPHIL COUNT 3.8 K/uL (1.8-6.4); PLATELET COUNT 173 K/uL (156-360); RBC DIS.WIDTH-SD 54.5 % (39-53); RED BLOOD COUNT 3.07 M/uL (4.00-5.50); WHITE BLOOD COUNT 5.7 K/uL (4.1-10.2)
[2017-06-02 05:48] LABS: ANION GAP 5 MEQ/L (2-14); CHLORIDE 108 MEQ/L (99-109); GFR ESTIMATE (CALCULATED) > 59 mL/min/; GLUCOSE 85 mg/dL (70-99); POTASSIUM 4.2 MEQ/L (3.7-5.4); SAMPLE HEMOLYSIS CHECK 0; SAMPLE ICTERIC CHECK 0; SAMPLE LIPEMIA CHECK 0; SODIUM 141 MEQ/L (136-147); UREA NITROGEN (BUN) 16 mg/dL (9-23)
[2017-06-02 08:20] VITALS: BP 118/63
[2017-06-02 11:41] VITALS: BP 120/69
[2017-06-02 16:00] VITALS: BP 109/59
[2017-06-02 18:23] LABS: HEMATOCRIT 33.8 % (38.0-50.0); MCH 29.7 PG (29.0-34.0); MCHC 31.7 G/DL (30.0-36.0); MCV 93.9 FL (86-99); MEAN PLAT.VOLUME 10.2 uM^3 (9.0-12.4); PLATELET COUNT 198 K/uL (156-360); RBC DIS.WIDTH-CV 15.9 % (11.8-14.6); RBC DIS.WIDTH-SD 53.5 % (39-53); WHITE BLOOD COUNT 8.2 K/uL (4.1-10.2)
[2017-06-02 20:17] LABS: INTERNAL CONTROL VALID? YES
[2017-06-02 20:29] VITALS: BP 106/63
[2017-06-02 23:30] VITALS: BP 106/61
[2017-06-03 04:04] VITALS: BP 101/57
[2017-06-03 05:22] LABS: EOSINOPHIL (%) 1.9 % (0-5); EOSINOPHIL COUNT 0.1 K/uL (0-0.3); HEMATOCRIT 30.7 % (38.0-50.0); IMMATURE GRANULOCYTE (%) 0.6 % (0.0-0.7); INSTRUMENT ABS NEUTROPHIL CT 4.4 K/uL; LYMPHOCYTE COUNT 1.3 K/uL (1.0-2.8); MCH 31.5 PG (29.0-34.0); MCHC 33.2 G/DL (30.0-36.0); MCV 94.8 FL (86-99); MONOCYTE (%) 7.5 % (3-12); MONOCYTE COUNT 0.5 K/uL (0-0.8); NEUTROPHIL (%) 69.8 % (45-76); NEUTROPHIL COUNT 4.4 K/uL (1.8-6.4); PLATELET COUNT 174 K/uL (156-360); RBC DIS.WIDTH-SD 54.7 % (39-53); RED BLOOD COUNT 3.24 M/uL (4.00-5.50); WHITE BLOOD COUNT 6.3 K/uL (4.1-10.2)
[2017-06-03] MEDS ORDERED: GAS RELIEF 8080 MG PO (07:53)
[2017-06-03] MEDS ORDERED: LACTAID ULT9000 UNIT PO (07:55)
[2017-06-03 08:38] VITALS: BP 115/66
[2017-06-03 09:11] LABS: POC NON-PRINT COM 1 ND
[2017-06-03 09:12] LABS: POC NON-PRINT COM 1 ND
[2017-06-03 09:13] LABS: POC NON-PRINT COM 1 ND
[2017-06-03 10:57] LABS: INTERNAL CONTROL VALID? YES
[2017-06-03 17:30] VITALS: BP 113/63
[2017-06-03 19:13] VITALS: BP 105/65
[2017-06-04 00:42] VITALS: BP 98/58
[2017-06-04 05:21] VITALS: BP 100/60
[2017-06-04 05:34] LABS: EOSINOPHIL (%) 2.4 % (0-5); EOSINOPHIL COUNT 0.1 K/uL (0-0.3); HEMATOCRIT 30.6 % (38.0-50.0); IMMATURE GRANULOCYTE (%) 0.9 % (0.0-0.7); IMMATURE GRANULOCYTE COUNT 0.1 K/uL; INSTRUMENT ABS NEUTROPHIL CT 3.9 K/uL; LYMPHOCYTE COUNT 1.3 K/uL (1.0-2.8); MCV 93.9 FL (86-99); MEAN PLAT.VOLUME 9.8 uM^3 (9.0-12.4); MONOCYTE (%) 9.2 % (3-12); MONOCYTE COUNT 0.5 K/uL (0-0.8); NEUTROPHIL (%) 65.8 % (45-76); NEUTROPHIL COUNT 3.9 K/uL (1.8-6.4); PLATELET COUNT 145 K/uL (156-360); RBC DIS.WIDTH-CV 15.8 % (11.8-14.6); RBC DIS.WIDTH-SD 53.8 % (39-53); RED BLOOD COUNT 3.26 M/uL (4.00-5.50); WHITE BLOOD COUNT 5.9 K/uL (4.1-10.2)
[2017-06-04 07:59] VITALS: BP 111/62
[2017-06-04 11:13] VITALS: BP 98/64
[2017-06-04 15:06] VITALS: BP 92/57
[2017-06-04 19:45] VITALS: BP 103/63
[2017-06-05] VITALS (7 sets, daily range): BP systolic 98–114; BP diastolic 52–74
[2017-06-05 05:31] LABS: EOSINOPHIL (%) 2.3 % (0-5); EOSINOPHIL COUNT 0.2 K/uL (0-0.3); HEMATOCRIT 32.4 % (38.0-50.0); IMMATURE GRANULOCYTE COUNT 0.1 K/uL; INSTRUMENT ABS NEUTROPHIL CT 5.9 K/uL; LYMPHOCYTE COUNT 1.1 K/uL (1.0-2.8); MCH 31.1 PG (29.0-34.0); MCV 94.2 FL (86-99); MEAN PLAT.VOLUME 10.2 uM^3 (9.0-12.4); MONOCYTE (%) 8.7 % (3-12); MONOCYTE COUNT 0.7 K/uL (0-0.8); NEUTROPHIL (%) 73.9 % (45-76); NEUTROPHIL COUNT 5.9 K/uL (1.8-6.4); PLATELET COUNT 183 K/uL (156-360); RBC DIS.WIDTH-CV 15.9 % (11.8-14.6); RBC DIS.WIDTH-SD 53.8 % (39-53); RED BLOOD COUNT 3.44 M/uL (4.00-5.50); WHITE BLOOD COUNT 7.9 K/uL (4.1-10.2)
[2017-06-06 04:04] VITALS: BP 112/70
[2017-06-06 08:20] VITALS: BP 99/60
[2017-06-06 12:23] VITALS: BP 104/65
[2017-06-06] MEDS ORDERED: DUONEB 2.5-0.5 M3 ML AEROSOL (15:02)
[2017-06-06] MEDS ORDERED: THERAGRAN1 TABLET PO (15:05)
[2017-06-06] MEDS ORDERED: PREDNISONE5 MG PO (15:05)
[2017-06-06] MEDS ORDERED: DELZICOL400 M1 PO (15:06)
[2017-06-06] MEDS ORDERED: FERROUS SULFAT325 MG PO (15:06)
[2017-06-06] MEDS ORDERED: LOPRESSOR25 MG PO (15:06)
[2017-06-06] MEDS ORDERED: CEFEPIME HCL2 GM IV (15:23)
[2017-06-06] MEDS ORDERED: HYDROCODON-ACE1 EAC7 PO (15:23)
[2017-06-06] MEDS ORDERED: NEBULIZER MC (15:25)
[2017-06-06 15:31] VITALS: BP 107/64
== END 2017-06-06 16:22 | disposition home health service (06) | DRG 853 ==
LOC: EME 14:51 → EDOF 18:01 → 4WEST 18:01 → 4EAST 18:01 → ENRESERV 18:02 → 4WEST 19:15 → ENRESERV 05-22 07:08 → CANRESERV 05-22 07:08 → ENRESERV 05-22 07:23 → 5SOUTH 05-22 13:45 → ENRESERV 05-27 20:45 → 4EAST 05-27 21:49
PROVIDERS: Emergency Medicine; Family Medicine; Hospitalist; Internal Medicine; Internal Medicine Critical Care Medicine; Internal Medicine Pulmonary Disease; Obstetrics & Gynecology; Radiology Diagnostic Radiology; Specialist
PROC: 02HV33Z Insertion of Infusion Device into Superior Vena Cava, Percutaneous Approach (ICD-10-PCS; 2017-05-10)
PROC: 5A1955Z Respiratory Ventilation, Greater than 96 Consecutive Hours (ICD-10-PCS; principal; 2017-05-11)
PROC: 0BH17EZ Insertion of Endotracheal Airway into Trachea, Via Natural or Artificial Opening (ICD-10-PCS; principal; 2017-05-11)
PROC: 0B9J8ZX Drainage of Left Lower Lung Lobe, Via Natural or Artificial Opening Endoscopic, Diagnostic (ICD-10-PCS; 2017-05-14)
PROC: 0BCC8ZZ Extirpation of Matter from Right Upper Lung Lobe, Via Natural or Artificial Opening Endoscopic (ICD-10-PCS; 2017-05-20)
PROC: 0B9J8ZX Drainage of Left Lower Lung Lobe, Via Natural or Artificial Opening Endoscopic, Diagnostic (ICD-10-PCS; 2017-05-20)
PROC: 0BCF8ZZ Extirpation of Matter from Right Lower Lung Lobe, Via Natural or Artificial Opening Endoscopic (ICD-10-PCS; 2017-05-20)
PROC: 0BCD8ZZ Extirpation of Matter from Right Middle Lung Lobe, Via Natural or Artificial Opening Endoscopic (ICD-10-PCS; 2017-05-20)
PROC: 0B9F8ZX Drainage of Right Lower Lung Lobe, Via Natural or Artificial Opening Endoscopic, Diagnostic (ICD-10-PCS; 2017-05-20)
PROC: 0W9B3ZX Drainage of Left Pleural Cavity, Percutaneous Approach, Diagnostic (ICD-10-PCS; 2017-05-23)
PROC: 0BDP4ZZ Extraction of Left Pleura, Percutaneous Endoscopic Approach (ICD-10-PCS; 2017-05-27)
PROC: 0W9B40Z Drainage of Left Pleural Cavity with Drainage Device, Percutaneous Endoscopic Approach (ICD-10-PCS; 2017-05-27)
PROC: 0BNL4ZZ Release Left Lung, Percutaneous Endoscopic Approach (ICD-10-PCS; 2017-05-27)
PROC: 0BBL4ZZ Excision of Left Lung, Percutaneous Endoscopic Approach (ICD-10-PCS; 2017-05-27)
PROC: 0BCL4ZZ Extirpation of Matter from Left Lung, Percutaneous Endoscopic Approach (ICD-10-PCS; 2017-05-27)
PROC: 30233N1 Transfusion of Nonautologous Red Blood Cells into Peripheral Vein, Percutaneous Approach (ICD-10-PCS; 2017-05-29)
PROC: 0DB68ZX Excision of Stomach, Via Natural or Artificial Opening Endoscopic, Diagnostic (ICD-10-PCS; 2017-06-04)
DX: A41.51 Sepsis due to Escherichia coli [E. coli] (principal); A40.3 Sepsis due to Streptococcus pneumoniae; R65.21 Severe sepsis with septic shock; J86.9 Pyothorax without fistula; J44.0 Chronic obstructive pulmonary disease with (acute) lower respiratory infection; J15.5 Pneumonia due to Escherichia coli; J13 Pneumonia due to Streptococcus pneumoniae; Y95 Nosocomial condition; J96.21 Acute and chronic respiratory failure with hypoxia; J96.22 Acute and chronic respiratory failure with hypercapnia; N17.9 Acute kidney failure, unspecified; T17.800A Unspecified foreign body in other parts of respiratory tract causing asphyxiation, initial encounter; J90 Pleural effusion, not elsewhere classified; J98.11 Atelectasis; E87.4 Mixed disorder of acid-base balance; J44.1 Chronic obstructive pulmonary disease with (acute) exacerbation; L03.119 Cellulitis of unspecified part of limb; R64 Cachexia; Z68.1 Body mass index [BMI] 19.9 or less, adult; I47.1 Supraventricular tachycardia; D69.6 Thrombocytopenia, unspecified; E87.0 Hyperosmolality and hypernatremia; D70.3 Neutropenia due to infection; D50.9 Iron deficiency anemia, unspecified; K21.9 Gastro-esophageal reflux disease without esophagitis; K29.70 Gastritis, unspecified, without bleeding; K31.7 Polyp of stomach and duodenum; K50.90 Crohn's disease, unspecified, without complications; K56.7 Ileus, unspecified; M06.9 Rheumatoid arthritis, unspecified; I11.9 Hypertensive heart disease without heart failure; K92.1 Melena; N40.1 Benign prostatic hyperplasia with lower urinary tract symptoms; N13.8 Other obstructive and reflux uropathy; N32.3 Diverticulum of bladder; R73.9 Hyperglycemia, unspecified; M25.512 Pain in left shoulder; M54.6 Pain in thoracic spine; F17.210 Nicotine dependence, cigarettes, uncomplicated; F32.9 Major depressive disorder, single episode, unspecified; Z78.1 Physical restraint status; Z85.51 Personal history of malignant neoplasm of bladder; Z86.718 Personal history of other venous thrombosis and embolism; Z86.79 Personal history of other diseases of the circulatory system; Z90.49 Acquired absence of other specified parts of digestive tract; Z92.21 Personal history of antineoplastic chemotherapy
CPT/HCPCS: 36600; 71010; 71020; 71250; 73020; 73030; 74176; 76942; 80048; 80048 91; 80053; 80202; 81003; 82040; 82272; 82550; 82728; 82746; 82803; 82945; 82947 91; 83010 90; 83540; 83605; 83615; 83615 91; 83735; 83986 90; 84100; 84132 91; 84155; 84157; 84466; 84478; 84484; 85014; 85018; 85025; 85027; 85045; 85610; 85730; 86850; 86900; 86901; 86920; 87040; 87070; 87075; 87077; 87081; 87102; 87116; 87181; 87186; 87205; 87206; 87278; 87641; 87801; 88108; 88304; 88305; 88312; 88342 TC; 89051; 92610 GN; 93005; 93306; 93971; 94002; 94003; 94010; 94640; 94640 76; 94644; 94667; 94668; 94760; 94799; 97530 GO; 97530 GP; 99202; 99281; 99285; C1751; C1769; C9113; J0330; J0456; J0692; J0696; J1170; J1630; J1644; J1720; J1940; J2060; J2175; J2250; J2270; J2405; J2543; J2704; J2710; J2920; J2930; J3010; J3370; J3475; J7030; J7050; J7120; J7512; J7608; P9016; S0028

== ENCOUNTER → 2017-07-01 | Outpatient (CLI) | payer OTHER ==
[~2017-07-01] MED LIST changes: +AFRIN,GENASAL D15 ML BOTH NARES; +CEFEPIME HCL2 GM IV; +DELZICOL400 M1 PO; +DUONEB 2.5-0.5 M3 ML AEROSOL; +FERROUS SULFAT325 MG PO; +GABAPENTIN300 MG PO; +GAS RELIEF 8080 MG PO; +HYDROCODON-ACE1 EAC7 PO; +LACTAID ULT9000 UNIT PO; +LOPRESSOR25 MG PO; +NEBULIZER MC; +PREDNISONE5 MG PO; +PREDNISONE50 MG PO; +TAMSULOSIN HCL0.4 MG PO; +THERAGRAN1 TABLET PO; +TIZANIDINE HCL4 MG PO
== END | disposition home or self-care (01) ==
LOC: NUC 11:30
DX: J90 Pleural effusion, not elsewhere classified (principal); J18.9 Pneumonia, unspecified organism; J98.11 Atelectasis
CPT/HCPCS: 71020; 78582; A9540; A9567

== ENCOUNTER → 2017-12-15 | Outpatient (CLI) | payer OTHER ==
[~2017-12-15] MED LIST changes: +BEVESPI AEROS10.7 GM IH; +DIFLUCAN100 MG PO
== END | disposition home or self-care (01) ==
LOC: RES 07:58
DX: Z02.71 Encounter for disability determination (principal)
CPT/HCPCS: 94060; 94729; 94760